=== PATIENT | female | born 1965 | race Caucasian/White ===

== ENCOUNTER 2016-11-07 23:30 | Inpatient (IN) ==
[2016-11-08] MEDS ORDERED: ZOFRAN IV ONE (00:14)
[2016-11-08] MEDS ORDERED: DILAUDID IV ONE ×3 (00:14→02:58)
[2016-11-08] MEDS ORDERED: NS 1,000 ML IV ONE (00:14)
[2016-11-08 00:33] LABS: MANUAL DIFF NEEDED? NO
[2016-11-08 00:33] LABS: URINE CULTURE NEEDED? NO; URINE SOURCE CLEAN CATCH
[2016-11-08 00:39] LABS: BILIRUBIN URINE NEGATIVE (NEGATIVE); BLOOD URINE NEGATIVE (NEGATIVE); COLOR YELLOW; GLUCOSE URINE NEGATIVE (NEGATIVE); LEUKOCYTES URINE NEGATIVE (NEGATIVE); NITRITE URINE NEGATIVE (NEGATIVE); PROTEIN URINE NEGATIVE (NEGATIVE); SP GRAVITY URINE 1.016; TURBIDITY URINE CLEAR (CLEAR); UROBILINOGEN URINE NORMAL (NORMAL)
[2016-11-08 00:39] LABS: BASO% 0.3 % (0.0-0.8); EOS# 0.14 X1000 (0.0-0.7); HEMATOCRIT 38.9 % (37.0-47.0); HEMOGLOBIN 13.1 g/dL (12.0-16.0); LYMPH# 0.89 X1000 (1.2-3.4); LYMPH% 12.8 % (20.5-51.1); MCH 31.6 PG (27-31); MCHC 33.7 g/dL (33-37); MCV 93.7 FL (81-99); MONO# 0.55 X1000 (0.11-0.59); MONO% 7.9 % (1.7-9.3); MPV 10.6 FL (7.4-10.4); PLT 260 X1000 (130-400); RBC 4.15 XMIL (4.2-5.4)
[2016-11-08 00:40] LABS: URINE MICRO REVIEW NEEDED? YES
[2016-11-08 00:44] LABS: UR EPITHELIAL CELLS <10 /HPF (<10); URINE BACTERIA NEGATIVE /HPF; URINE RBC <10 /HPF (<10); URINE WBC <10 /HPF (<10)
[2016-11-08 00:53] LABS: URINE CASTS NONE SEEN; URINE CRYSTALS CA OXALATE PRESENT
[2016-11-08 01:07] LABS: AGAP 15; ALBUMIN 4.2 g/dL (3.5-5.0); ALKALINE PHOSPHATASE 106 U/L (32-104); AMYLASE 63 U/L (20-200); BUN 14 mg/dL (8-22); CALCIUM 9.3 mg/dL (8.8-10.2); CHLORIDE 109 mmol/L (98-107); COSMO 289; GOT 19 U/L (10-30); GPT 14 U/L (10-36); LIPASE 17 U/L (13-60); POTASSIUM 4.5 mmol/L (3.5-5.1); SODIUM 145 mmol/L (136-145); TCO2 21 mmol/L (25-35); TOTAL BILIRUBIN 0.24 mg/dL (0.20-1.00); TOTAL PROTEIN 6.5 g/dL (6.3-8.3)
--- NOTE | 2016-11-08 02:51 | PROVIDER DOCUMENTATION ---
This chart was entered by Jose Quiroga Scribe, acting as scribe for Jhoan Vargas MD. HPI-Abdominal Pain/GI Problem - General Chief Complaint: Abdominal Pain Stated Complaint: abdominal pain Time Seen by Provider: 11/07/16 23:58 Source: patient Allergies/Adverse Reactions: Patient Allergies Allergy/AdvReac Type Severity Reaction Status Date / Time metaxalone [From Skelaxin] Allergy Unknown Verified 11/07/16 23:45 Home Medications: Home Medication List Medication Instructions Recorded Confirmed Last Taken Type Topiramate [Topamax] 100 mg PO BID 10/18/12 11/07/16 11/07/16 History [id number] 1,000 mcg IM Q14D 10/10/13 11/07/16 08/29/13 History Fluoxetine [Prozac] 30 mg PO DAILY 10/10/13 11/07/16 11/07/16 History Gabapentin [Neurontin] 300 mg PO 4XDAY 07/20/14 11/07/16 11/07/16 History Tramadol HCl [Tramadol HCl] 50 mg PO DAILY 11/07/16 11/07/16 11/07/16 History - History of Present Illness-ABD Nature of Presenting Problems: Pt is a 50 yowf who presents to ER with CC of sharp/cramping LLQ pain that has become gradually worse since onset of 1899 yesterday, just before pt started work. Pt complains of nausea without vomiting and states that her pain feels similar to when she had a sbo (pt reports that she never had corrective surgery , but was instead admitted for observation until sbo resolved itself). No further complaints. Abdominal Pain Onset Location: reports: LLQ Pain Radiation: reports: no radiation Quality of Pain: reports: cramping, sharp Severity in ED: reports: moderate, severe Onset/Duration: reports: 4-6 hours ago Timing: reports: still present, getting worse Associated Symptoms: reports: loss of appetite, nausea. denies: back/neck pain , chest pain, cough, diarrhea, fatigue, fever/chills, heartburn, joint pain, shortness of breath, syncope, vomiting, weakness, trouble walking Last BM: this evening Dark Stools Present?: reports: none noticed Rectal Bleeding: reports: none Rectal Pain: reports: none Emesis Description: reports: none Review of Systems - Adult - REVIEW OF SYSTEMS - ADULT Constitutional: denies: chills, fever, fatique, night sweats, weight gain, weight loss Eyes: reports: no symptoms reported Ears, Nose, Mouth & Throat: reports: no symptoms reported Cardiovascular: denies: chest pain, irregular heart rate, palpitations, poor circulation, syncope Respiratory: denies: cough, dyspnea on exertion, excessive sputum production, shortness of breath, wheezing Gastrointestinal: reports: abdominal pain, nausea. denies: hematemesis, constipation, diarrhea, difficulty swallowing, frequent heartburn, poor appetite , rectal bleeding, vomiting Genitourinary: reports: no symptoms reported Musculoskeletal: reports: no symptoms reported Integumentary: reports: no symptoms reported Neurological: reports: no symptoms reported Psychiatric: reports: no symptoms reported Endocrine: reports: no symptoms reported Hematologic/Lymphatic: reports: no symptoms reported Allergic/Immunologic: reports: no symptoms reported All Other Systems: Reviewed and Negative Past History - Adult - PAST MEDICAL HISTORY-ADULT Review of Records: reports: Nursing Assessment Review, Medications Reviewed Gastrointestinal: reports: other (gastric bypass) - PRIOR SURGERIES/PROCEDURES Surgical/Procedure History: reports: gastric bypass - IMMUNIZATION STATUS Childhood Immunizations: See Nurse Assessment Flu Vaccine: See Nurse Assessment - FAMILY HISTORY Family History: reviewed, not pertinent - SOCIAL HISTORY Smoking: cigarettes, less than 1 pack/day Provider spent 3-5 mins advising pt. on dangers of tobacco.: Discussed manners to quit use, and f/u contacts for add'l counseling. Physical Exam-General - PHYSICAL EXAM-ADULT Initial Vital Signs Reviewed: Yes - CONSTITUTIONAL General Appearance: appears well, alert, moderate distress, obtunded - EYES Eyes: PERRL/EOMI, pink conjunctivae - HEAD, EARS, NOSE, MOUTH & THROAT HENMT: normocephalic/atraumatic, moist mucous membranes, pharynx normal - NECK Neck: non-tender, full range of motion, supple, normal inspection. negative: limited range of motion - RESPIRATORY Respiratory: chest non-tender, lungs clear, normal breath sounds, no pleuratic chest pain, no respiratory distress, no accessory muscle use. negative: respiratory distress, decreased breath sounds, accessory muscle use, wheezing - CARDIOVASCULAR Cardiovascular: normal peripheral pulses, regular rate, rhythm. negative: bradycardia, tachycardia, irregularly irregular - GASTROINTESTINAL (ABDOMEN) Abdominal Exam: normal bowel sounds, soft, no organomegaly, no pulsatile mass, tenderness (epigastric/LLQ superior to left umbilicus). negative: non tender - MUSCULOSKELETAL Extremity: normal range of motion, non-tender, normal gait, normal inspection, no pedal edema, no calf tenderness, normal capillary refill, pelvis stable. negative: deformity, erythema, inflammation, swelling, tenderness - PSYCHIATRIC Psych/Mental Status: normal thought content, normal thought process, oriented x 3, disheveled, tearful. negative: normal mood/affect Progress - PLAN OF CARE/RESULTS Progress/Plan/Lab Results: Vital Signs - 8 hr 11/07/16 23:38 Temperature 97.9 F Pulse Rate 86 Respiratory Rate 17 Blood Pressure 128/79 O2 Sat by Pulse Oximetry 100 Orders Category Date Time Status CT ABD/PELVIS W/ IV CONT ONLY [CT] Stat Exams 11/08/16 00:14 Ordered AMYLASE [CHEM] Stat Lab 11/07/16 23:57 Ordered CBC WITH ELECTRONIC DIFF [HEME] Stat Lab 11/07/16 23:57 Ordered COMPREHENSIVE METABOLIC PANEL [CHEM] Stat Lab 11/07/16 23:57 Ordered LIPASE [CHEM] Stat Lab 11/07/16 23:57 Ordered URINALYSIS W/POSS RFLX CULT-1 [URINALYSIS] Stat Lab 11/07/16 23:40 Ordered 0.9% Sodium Chloride Inj [Ns] 1,000 ml Med 11/08/16 00:14 Active IV 200 mls/hr Hydromorphone [Dilaudid] Med 11/08/16 00:14 Discontinued 1 mg IV NOW ONE Ondansetron [Zofran] Med 11/08/16 00:14 Discontinued 8 mg IV NOW ONE 0221: Yuliet from [facility] called and reported that pt has sbo. Result Diagrams: 11/07/16 23:51 11/07/16 23:51 - CT/MRI 1 CT Study: Abdomen, Pelvis Impression: See EMR Report (Small bowel obstruction. Other findings in report. - Dr. Vick (Radiologist)) CT Results: See report - CONSULTS/PCP/HOSPITALIST Notification #1 *Consult/PCP/Hospitalist*: Dr. Latif (Surgeon) Time Discussed: 02:45 Reason/Comments: Place NG and admit #2 Consult: Dr. Olivares (Hospitalist) Time Discussed: 02:48 Consult Disposition: Admit Departure - Departure Date of Disposition Decision: 11/08/16 Time of Disposition Decision: 02:49 DIAGNOSIS: Small bowel obstruction Disposition: ADMITTED INPATIENT 09 Certified Medical Emergency: Emergent Condition: Good Referrals and Follow-Ups: Silvia Pugh MD [Primary Care Provider] - - Critical Care Note This patient required my direct & personal management of CC.: No This chart was documented by the indicated scribe, (Jose Quiroga Scribe) and accurately reflects the services I performed and decisions made by me, Jhoan Vargas MD, as attested by the provider's signature.
--- NOTE | 2016-11-08 03:33 | HISTORY AND PHYSICAL ---
PRIMARY CARE PHYSICIAN: Dr. Pugh. CHIEF COMPLAINT: Abdominal pain. HISTORY OF PRESENTING ILLNESS: A 50-year-old female with a history of gastric bypass, depression, and chronic low back pain. Had apparently been working earlier today when she developed moderate amount of abdominal pain. 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 She was evaluated by ER physician. She had a CAT scan done which did show a small bowel obstruction. Due to these presenting symptoms, it was thought that she would need hospitalization for further management. At the time of my examination, she denied any headache, fever, chills, chest pain, shortness of breath, hemoptysis, or weight changes but complained of abdominal pain. PAST MEDICAL HISTORY: Includes dysautonomia, depression, chronic low back pain, peripheral neuropathy. PAST SURGICAL HISTORY: Gastric bypass, cholecystectomy, hysterectomy, appendectomy, breast lift, and apparently body lift. ALLERGIES: Skelaxin. CURRENT MEDICATIONS: As listed on the MAR. SOCIAL HISTORY: Patient states that she has been smoking for the past 3 years. Denies any history of alcohol or illicit drug use. FAMILY HISTORY: Positive for coronary disease in father. REVIEW OF SYSTEMS: Twelve point review of systems as listed as in the HPI. Other systems negative. PHYSICAL EXAMINATION: GENERAL: Cooperative, friendly female. She is resting comfortably now. VITAL SIGNS: Temperature 97.9 degrees, pulse 86, respirations 17, blood pressure 128/79. HEENT: Atraumatic, normocephalic. Extraocular movements intact. PERRLA. NECK: Supple. CHEST: Clear to auscultation. CARDIOVASCULAR: Regular rhythm. ABDOMEN: Soft. Diffuse tenderness. EXTREMITIES: No edema. NEUROLOGIC: She is awake, alert, oriented x3. : No bladder distention. SKIN: Warm. LABORATORIES AND STUDIES: WBCs 6.95, hemoglobin 13.1, hematocrit 38.9, platelets 260,000. Sodium 145, potassium 4.5, chloride 109, CO2 is 21, BUN is 14, creatinine 0.6, glucose is 92. ASSESSMENT: A 50-year-old female with a history of a dysautonomia, gastric bypass, depression, and chronic low back pain. 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 She was evaluated in the emergency room. She had a CAT scan done which was consistent with a small bowel obstruction. Subsequently, she will need hospitalization for further management. 1. Small bowel obstruction. 2. Chronic low back pain. 3. Depression. 4. Dysautonomia. PLAN: 1. We will admit patient to medical floor with telemetry. 2. We will keep patient NPO. 3. We will continue with supportive treatment, IV fluids, antiemetics, and pain control. 4. We will consult general surgery. 5. We will restart patient's home medications. 6. We will put patient on DVT prophylaxis with SCDs. 7. Continue to follow and reassess. cc: Néstor Olivares MD
[2016-11-08] MEDS: NS 1,000 ML IV SCH ×3 (04:34→21:05)
[2016-11-08] MEDS: ZOFRAN IV PRN ×3 (04:44→21:04)
[2016-11-08] MEDS: DILAUDID IV PRN ×5 (04:45→22:36)
--- NOTE | 2016-11-08 06:43 | Diag Imaging Result Doc PS360 ---
EXAM: CHEST/ABD TUBE PLACEMENT HISTORY: ng tube placement TECHNIQUE: Portable upright AP chest abdomen COMPARISON: 10/21/2016 FINDINGS: There is a nasogastric tube overlying the esophagus and stomach. The lung bases are clear. No free air beneath the diaphragm. IMPRESSION: Nasogastric tube enters the stomach Electronically signed by Chu Dickerson 11/08/2016 6:41 AM
--- NOTE | 2016-11-08 07:09 | CONSULTATION ---
DATE OF CONSULTATION: 11/08/2016 REQUESTING PHYSICIAN: Hospitalist service. REASON FOR CONSULTATION: Consult is concerning bowel obstruction. HISTORY OF PRESENT ILLNESS: A 50-year-old, female with a history of gastric bypass, presenting now with moderate amount of abdominal pain. She had a CT scan that did show a bowel obstruction and to my read, it looks like it is potentially related to her gastric bypass. She had an NG tube placed but has not to placed to suction and was admitted to the floor by the hospitalist. She denies any kind of headache, fever, chills, chest pain or shortness of breath but does complain of abdominal pain. Reports it is more in the epigastric and right upper quadrant. She said she has had bowel obstructions before but this is more intense. I was asked to weigh an opinion. PAST MEDICAL HISTORY: 1. Dysautonomia. 2. Depression. 3. Chronic back pain. 4. Peripheral neuropathy. PAST SURGICAL HISTORY: 1. Previous gastric bypass (Donavan-en-Y gastric bypass). 2. Cholecystectomy. 3. Hysterectomy. 4. Appendectomy. 5. Breast lift. 6. Abdominoplasty. ALLERGIES: Skelaxin. CURRENT MEDICATIONS: Reviewed from the MAR. SOCIAL HISTORY: Smoker. Denies alcohol or illicit drugs. FAMILY HISTORY: Positive for coronary artery disease. REVIEW OF SYSTEMS: A full 10 point review of systems was obtained and negative except as specified in the HPI. PHYSICAL EXAMINATION: Vital Signs: The patient is currently afebrile. Her vital signs have been stable. General Examination: No acute distress but appears uncomfortable. female, looks stated age. HEENT: Normocephalic, atraumatic. Pupils equal, round, react to light. Mucous membranes moist. Oropharynx benign. Neck: Supple. Trachea midline. Cardiovascular: Regular rate and rhythm. Lungs: Grossly clear. Abdomen: Soft. Some tenderness to palpation in the right upper quadrant and epigastric. No peritoneal signs at this time. Extremities: Moves all extremities. Neurologic: Grossly intact. Skin: No signs of jaundice. Vascular: All extremities perfused. LABORATORY: White blood cell count 6, hematocrit is 38.9, platelet count is 260,000. CT scan independently reviewed. Radiology, preliminary report reviewed. Consistent with a bowel obstruction, although to my read, it looks like potentially it is related to the Donavan limb. ASSESSMENT AND PLAN: A 50-year-old, female with a small bowel obstruction and a history of gastric bypass. Small bowel obstruction with a history of gastric bypass. At this time, I am concerned about the patient's overall physical exam. She had an NG tube that has been placed but we will now place the NG to low wall intermittent suction. We will give some time to allow this to work. We will reassess later today. The patient may need exploratory laparotomy. Discussed with her this extensively discussed. Discussed that she might need her gastric bypass revised. All questions were answered. We will again follow up with the patient later today to see how she is doing. cc: MD Gabriel Ge MD
--- NOTE | 2016-11-08 07:20 | Diag Imaging Result Doc PS360 ---
EXAM: CT ABD/PELVIS W/ IV CONT ONLY HISTORY: epigast pain, hx of SBO TECHNIQUE: Dose reduction protocol COMPARISON: 10/10/2013 FINDINGS: The gallbladder has been removed and there has been a gastric bypass procedure. Normal spleen, pancreas, adrenal glands, liver, and kidneys. No hydronephrosis. Normal aorta. There are several small para-aortic and paracaval lymph nodes measuring up to 1.0 cm. There are overly distended small bowel loops filled with debris in the left abdomen. The distal small bowel loops are not dilated. There is stool throughout the colon. The uterus is been removed. Small amount of free fluid is found in the pelvis. No pelvic mass. The urinary bladder is moderately distended and appears normal. IMPRESSION: 1.Small bowel obstruction 2.Constipation 3.Cholecystectomy, gastric bypass, and hysterectomy 4.A preliminary report was given at 2:21 AM Electronically signed by Chu Dickerson 11/08/2016 7:17 AM
[2016-11-08] MEDS ORDERED: MEFOXIN 2 GM/NS 2 GM/50 ML IVPB IV ONE (13:05)
[2016-11-08] MEDS ORDERED: EXPAREL 1.3% ONE (13:43)
[2016-11-08] MEDS ORDERED: MARCAINE 0.25% PF ONE (13:43)
[2016-11-08] MEDS ORDERED: SODIUM CHLORIDE 0.9% 20 ML ONE (13:43)
--- NOTE | 2016-11-08 14:01 | Diag Imaging Result Doc PS360 ---
EXAM: SMALL BOWEL SERIES ONLY HISTORY: Bowel Obstruction TECHNIQUE: COMPARISON: None. FINDINGS: Oral contrast was placed into the stomach from the patient's nasogastric tube. Films for two hours obtained. Contrast empties from the small stomach pouch into the small bowel bowel. The proximal loops are not overly distended. There is a single loop of bowel in the lateral left abdomen which appears to contain a small amount of contrast about fecalith material. The majority of the small bowel still does not contain contrast on the two-hour film. IMPRESSION: Findings suspicious for an obstruction. Recent CT seems to indicate a twisted segment in the lower left abdomen which may be a closed loop obstruction. Films discussed with Dr. Latif Electronically signed by Chu Dickerson 11/08/2016 1:59 PM
[2016-11-08 14:48] LABS: URINE MICRO REVIEW NEEDED? NO; URINE SOURCE CATH
[2016-11-08 14:51] LABS: BILIRUBIN URINE NEGATIVE (NEGATIVE); BLOOD URINE NEGATIVE (NEGATIVE); COLOR YELLOW; GLUCOSE URINE NEGATIVE (NEGATIVE); LEUKOCYTES URINE NEGATIVE (NEGATIVE); NITRITE URINE NEGATIVE (NEGATIVE); PROTEIN URINE NEGATIVE (NEGATIVE); SP GRAVITY URINE 1.022; TURBIDITY URINE CLEAR (CLEAR); UROBILINOGEN URINE NORMAL (NORMAL)
[2016-11-08 14:52] LABS: UR EPITHELIAL CELLS <10 /HPF (<10); URINE BACTERIA NEGATIVE /HPF; URINE RBC <10 /HPF (<10); URINE WBC <10 /HPF (<10)
--- NOTE | 2016-11-08 15:12 | PROGRESS NOTE ---
DATE: 11/08/2016 SUBJECTIVE: Ms. Fang is a 50-year-old white female who was admitted last night with abdominal pain. She has small bowel obstruction. She has also a dysautonomia and has severe depression and back pain. Her CBC is normal. Electrolytes are normal. Urinalysis was negative. Abdominal CT done today revealed a small bowel obstruction. Constipation. She had a history of cholecystectomy. She had gastric bypass and hysterectomy in the past. She was seen by Dr. Latif today. -1 cc: MD Gabriel Solitario MD
--- NOTE | 2016-11-08 15:35 | PROGRESS NOTE ---
DATE: 11/08/2016 TIME OF DICTATION: 13:05. SUBJECTIVE: Reviewed images with Dr. Dickerson. I did order a small bowel series. Reviewed both small-bowel series and the CT scan. I am concerned there might be a potential volvulus versus internal hernia. Contrast does not seem to make much progress at 2 hours. Therefore, I think the patient will be taken to the operating room for exploratory laparotomy. I did discuss this with the patient. She voiced understanding. I will get her scheduled for today. cc: MD Gabriel Ge MD [facility]Jack
[2016-11-08] MEDS: PHENERGAN ONE ×2 (15:42→16:00)
[2016-11-08] MEDS ORDERED: DIPRIVAN 1% ONE (15:52)
--- NOTE | 2016-11-08 17:48 | OPERATIVE NOTE ---
PROCEDURE DATE: 11/08/2016 PREOPERATIVE DIAGNOSES: 1. Small bowel obstruction. 2. History of Donavan-en-Y gastric bypass. POSTOPERATIVE DIAGNOSIS: Small bowel obstruction secondary to internal hernia from the Donavan-en-Y gastric bypass. PROCEDURE PERFORMED: Exploratory laparotomy with reduction and repair of internal hernia. SURGEON: Emil Latif MD PLASTIC JOINT MAKER: None. ANESTHESIA: General endotracheal. INTRAOPERATIVE FINDINGS: On the Donavan-en-Y gastric bypass, the gastric pouch appeared to be antecolic. There was a defect there that contained what appeared to be the duodenal end of the bypass causing obstruction. Her anastomosis of the Donavan-en-Y bypass appeared to be slightly stenotic, but we were able to pass fluid and liquid through it. HISTORY: The patient is a 50-year-old female who presented with a bowel obstruction. She had a history Donavan-en-Y gastric bypass. We did a CT scan that was concerning for closed loop obstruction. She also had a small bowel series and did not pass beyond a certain point. We felt that potentially she had a closed loop obstruction. The risks, benefits, and alternatives for exploratory laparotomy were discussed. All questions were answered. DESCRIPTION OF PROCEDURE: After informed consent was obtained, the patient was brought to the operating theatre, transferred to the operating table, and placed in supine position. General endotracheal anesthesia was then performed without complication. A formal time-out was then performed, confirming patient, date, and procedure and all were in agreement. At that time, attention was turned to the abdomen. A standard midline incision was made, through which we went into the abdomen. We eviscerated essentially all the small bowel. We ran it multiple times. We 1st identified the right colon and ileocecal valve. We ran this bowel to the anastomosis. It was mostly decompressed. We then identified the Donavan limb to the gastric bypass. We followed it all the way up. It went antecolic. It was mildly distended and there was some thicker material noted in the small bowel. The anastomosis itself appeared to be slightly stenotic. We were able to pass this hardened liquid through it without difficulty. We did find a defect noted from the window made from the antecolic at the Donavan limb, which contained bowel from the duodenal aspect that was obstructing. We reduced it back into its normal position. This defect measured approximately 5 cm. We closed it with interrupted silk stitches with good results. We ran the small bowel multiple times and found no other pathology. There were no other points of obstruction. We irrigated the abdomen and then closed it with running looped PDS. We started at either side for the fascia and shelton for the skin. The patient tolerated the procedure well. We did confirm that the NG tube was in the correct position. We will keep the NG tube in the postoperative period and allow continued decompression and likely potentially remove it and later start on clear liquids in the morning. cc: MD Gabriel Ge MD
[2016-11-08] MEDS: CHLORASEPTIC SPRAY MT PRN (19:22)
[2016-11-09] MEDS: DILAUDID IV PRN ×7 (01:33→23:30)
[2016-11-09] MEDS: ZOFRAN IV PRN ×3 (05:04→20:02)
[2016-11-09] MEDS: NS 1,000 ML IV SCH ×4 (05:09→23:29)
[2016-11-09 06:04] LABS: BASO% 0.2 % (0.0-0.8); HEMATOCRIT 33.6 % (37.0-47.0); HEMOGLOBIN 11.1 g/dL (12.0-16.0); LYMPH# 0.66 X1000 (1.2-3.4); LYMPH% 11.5 % (20.5-51.1); MANUAL DIFF NEEDED? NO; MCV 93.9 FL (81-99); MONO# 0.68 X1000 (0.11-0.59); MONO% 11.9 % (1.7-9.3); MPV 10.4 FL (7.4-10.4); NEUT% 76.4 % (42.2-75.2); PLT 209 X1000 (130-400); RBC 3.58 XMIL (4.2-5.4)
--- NOTE | 2016-11-09 06:34 | PROGRESS NOTE ---
DATE: 11/09/2016 SUBJECTIVE: Patient doing okay after exploratory laparotomy. She is passing gas now. She is only minimally nauseated. She wants her NG tube out. OBJECTIVE: Vital Signs: Patient is currently afebrile. Her heart rates in the low 100s to high 90s. The remainder of her vital signs are stable. General: No acute distress. Resting comfortably. Cardiovascular: Mildly tachycardic. Lungs: Grossly clear. Abdomen: Soft, appropriately tender. Dressing in place. ASSESSMENT AND PLAN: A 50-year-old female, status post exploratory laparotomy with reduction and repair of internal hernia. Postoperative state at this time, I will clamp the NG tube and start her on clear liquids and she is passing gas. We will monitor her closely. I suspect that the patient has a chronic stenotic area at her Donavan-en-Y gastric bypass and she is likely going to need to increase her intake of water in this area and do post gastrectomy diet. We will follow with her while she is in the hospital. cc: MD Gabriel Ge MD
[2016-11-09 06:58] LABS: AGAP 10; BUN 8 mg/dL (8-22); CALCIUM 8.1 mg/dL (8.8-10.2); CHLORIDE 108 mmol/L (98-107); COSMO 277; POTASSIUM 3.7 mmol/L (3.5-5.1); SODIUM 139 mmol/L (136-145); TCO2 21 mmol/L (25-35)
[2016-11-09] MEDS: PROTONIX IV SCH (09:44)
--- NOTE | 2016-11-09 09:51 | PROGRESS NOTE ---
DATE: 11/09/2016 SUBJECTIVE: This is a level 3 documentation. Interval history was reviewed. The patient is a 50- year-old, white female. While working in the yard, developed nausea, vomiting, and abdominal pain. Further workup revealed a small bowel obstruction. It included a CT of the abdomen and pelvis, small bowel follow-through. Patient was treated symptomatically with NG tube and decompression. Patient was seen by Dr. Emil Latif. He did an exploratory laparotomy on the operative findings were reviewed. Currently, she is passing flatulence. NG tube was placed. Batres catheter was seen. REVIEW OF SYSTEMS: HEENT: Within normal limits. Neck: No neck pain. Cardiopulmonary: No chest pain, shortness of breath, PND, orthopnea. GI: Abdominal pain improving. History of flatus. No swelling of feet. No back pain. Neurologic: No focal symptoms. Past medical history, past surgical history, medicines were reviewed. PHYSICAL EXAMINATION: Vital Signs: She is afebrile. Vitals are stable. HEENT: Examination within normal limits. Neck: Supple. No lymphadenopathy. No goiter. Chest: Bilateral air entry. Heart: Heart sounds are regular. Abdomen: Belly is soft. Midline abdominal scar present. Bowel sounds 1+. Extremities: No peripheral edema. Neurologic Examination: No obvious focal deficits. INVESTIGATIONS: CBC: White cell count 5.7, hematocrit 33, platelets 209,000. SMA 7: Sodium 139, potassium 3.7, chloride 108, BUN 8, creatinine 0.5, glucose 110. Liver function was normal. Urinalysis is clear. ASSESSMENT AND PLAN: 1. Small-bowel obstruction due to internal hernia from gastric bypass surgery, decompressed and improving. Clamp the nasogastric tube. Clear liquid diet. 2. Decrease the intravenous fluids. 3. Out of the bed. 4. Recheck the labs in the morning. 5. Deep venous thrombosis prophylaxis with antithrombotic stockings. 6. Gastrointestinal prophylaxis with intravenous Protonix. 7. Discussed with the family and the patient the plan of care. LEVEL OF DOCUMENTATION: 35 minutes. cc: Gabriel Pugh MD
[2016-11-09] MEDS ORDERED: ZOFRAN ONE (10:15)
[2016-11-09] MEDS ORDERED: NORCURON ONE (10:15)
[2016-11-09] MEDS ORDERED: NEOSTIGMINE ONE (10:15)
[2016-11-09] MEDS ORDERED: XYLOCAINE-MPF 2% ONE (10:15)
[2016-11-09] MEDS ORDERED: QUELICIN (DOSE) ONE (10:15)
[2016-11-09] MEDS ORDERED: LR 2,000 ML ONE (10:15)
[2016-11-09] MEDS ORDERED: DECADRON ONE (10:15)
[2016-11-09] MEDS ORDERED: OFIRMEV 1000 MG/ISOTONIC SOLN 1,000 MG/100 ML BOTTLE ONE (10:15)
[2016-11-09] MEDS ORDERED: ROBINUL ONE (10:15)
[2016-11-10] MEDS: CHLORASEPTIC SPRAY MT PRN (03:02)
[2016-11-10] MEDS: ZOFRAN IV PRN ×3 (03:02→11:24)
[2016-11-10] MEDS: DILAUDID IV PRN ×5 (03:02→18:48)
[2016-11-10 06:28] LABS: MANUAL DIFF NEEDED? NO
[2016-11-10 06:39] LABS: BASO% 0.2 % (0.0-0.8); EOS# 0.16 X1000 (0.0-0.7); EOS% 3.9 % (0.0-10.0); HEMATOCRIT 32.1 % (37.0-47.0); HEMOGLOBIN 10.6 g/dL (12.0-16.0); LYMPH# 0.78 X1000 (1.2-3.4); MCH 31.5 PG (27-31); MCV 95.3 FL (81-99); MONO# 0.61 X1000 (0.11-0.59); MONO% 14.8 % (1.7-9.3); MPV 10.5 FL (7.4-10.4); NEUT% 62.1 % (42.2-75.2); PLT 194 X1000 (130-400); RBC 3.37 XMIL (4.2-5.4)
--- NOTE | 2016-11-10 06:42 | PROGRESS NOTE ---
DATE: 11/10/2016 SUBJECTIVE: Patient doing okay. She is still passing gas. She tolerated the liquids with only minimal nausea. The NG tube has been clamped for 24 hours. OBJECTIVE: Vital Signs: Patient is currently afebrile. Her vital signs have been stable. General Examination: No acute distress. Cardiovascular: Regular rate and rhythm. Lungs: Grossly clear. Abdomen: Soft, appropriately tender. Incision is healing well. ASSESSMENT AND PLAN: A 50-year-old, female, status post exploratory laparotomy with reduction and repair of internal hernia. Postoperative state. At this time, I will remove her nasogastric tube and keep her on clear liquids. I would like to keep her on clear liquids until she is really having return of bowel function with the passage of stool. She likely need to increase her water intake and have a postgastrectomy diet once this is all done. We will continue to follow the patient while she is here. cc: MD Gabriel Ge MD
[2016-11-10 06:58] LABS: AGAP 10; BUN 4 mg/dL (8-22); CALCIUM 8.2 mg/dL (8.8-10.2); CHLORIDE 106 mmol/L (98-107); COSMO 275; POTASSIUM 3.4 mmol/L (3.5-5.1); SODIUM 139 mmol/L (136-145); TCO2 23 mmol/L (25-35)
[2016-11-10] MEDS: PROTONIX IV SCH ×2 (07:50→09:31)
[2016-11-10] MEDS: SODIUM CHLORIDE 0.9% INJ SCH (07:50)
[2016-11-10] MEDS ORDERED: KLOR-CON PO ONE (08:38)
[2016-11-10] MEDS: PROZAC PO SCH (09:29)
[2016-11-10] MEDS: NS 1,000 ML IV SCH (13:10)
[2016-11-10] MEDS: BENADRYL IV PRN (15:33)
--- NOTE | 2016-11-10 18:14 | PROGRESS NOTE ---
DATE: 11/10/2016 SUBJECTIVE: Postop day 3 for bowel obstruction. The patient is out of bed. Complains of insomnia. Wants to restart the medicine. Patient is off on Lovenox. Passing gas. No nausea or vomiting. The rest of review of systems are normal. OBJECTIVE: Vital Signs: On examination she is afebrile. Vitals are stable. HEENT: Within normal limits. Neck: Supple. Chest: Clear. Heart: Sounds are regular. Abdomen: Belly is soft. Midline abdominal incision. No signs of active bleeding noted. Bowel sounds present. Extremities: No peripheral edema, cyanosis, clubbing. Neurologic: No obvious neurological deficits. INVESTIGATIONS: White cell count 4.1, hematocrit 32, platelets 194,000. SMA 7 is normal except potassium 3.4. Urinalysis is clear. ASSESSMENT AND PLAN: 1. Postoperative day 3 bowel obstruction due to internal hernia, and off nasogastric tube. Continue on the liquid diet. Decrease IV fluids 80 mL an hour. 2. Hypokalemia. Replace the potassium. 3. Insomnia. On Ambien. 4. Deep vein thrombosis prophylaxis with thrombotic stockings out of the bed. 5. Reconcile slowly her home medications. 6. Discontinue Batres catheter today. LEVEL OF DOCUMENTATION: 25 minutes. cc: Gabriel Pugh MD
[2016-11-10] MEDS: AMBIEN PO SCH (21:38)
[2016-11-11] MEDS: ZOFRAN IV PRN (00:13)
[2016-11-11] MEDS: DILAUDID IV PRN ×2 (00:13→04:17)
[2016-11-11] MEDS: NS 1,000 ML IV SCH ×2 (00:17→12:21)
[2016-11-11] MEDS: BENADRYL IV PRN (04:17)
--- NOTE | 2016-11-11 06:27 | PROGRESS NOTE ---
DATE: 11/11/2016 SUBJECTIVE: Patient doing well. Tolerated a clear liquid diet. She is having bowel movements. OBJECTIVE: Vital Signs: Patient is currently afebrile. Her vital signs stable. General Examination: No acute distress. Cardiovascular: Regular rate and rhythm. Lungs: Clear. Abdomen: Soft, appropriately tender. Incision is healing well. ASSESSMENT AND PLAN: A 50-year-old, female, status post exploratory laparotomy with reduction and repair of internal hernia. Postoperative state. At this time, we will start the patient on a full liquid diet. She is doing well overall. She is having bowel movements and return of bowel function. I want to take it slow with advancement of her diet. We will also transition her to oral pain medicine. The patient has continued to mobilize. I think overall she should be close to being discharged soon. cc: MD Gabriel Ge MD
[2016-11-11] MEDS: NORCO-10 PO PRN ×4 (07:30→21:13)
[2016-11-11] MEDS: PROZAC PO SCH (09:44)
[2016-11-11] MEDS: PROTONIX IV SCH (09:45)
[2016-11-11] MEDS: SODIUM CHLORIDE 0.9% INJ SCH (09:45)
--- NOTE | 2016-11-11 19:54 | PROGRESS NOTE ---
DATE: 11/11/2016 SUBJECTIVE: Over the last 4 hours, Batres was discontinued. The patient has a peripheral IV on the left neck area and the right hand out of the bed. Some cramping in the belly, passing gas. REVIEW OF SYSTEMS: None reported. PHYSICAL EXAMINATION: Vital Signs: Stable. HEENT: Within normal limits. Neck: Supple. No lymphadenopathy. Chest: Clear. Heart: Sounds are regular. Abdomen: Belly is soft. Midline shelton present. Extremities: No peripheral edema or cyanosis. Neurologic: No obvious neurological deficits. INVESTIGATIONS: CBC: White cell count 4.1, hematocrit 32, platelets 194,000. SMA7: Sodium 139, potassium 3.4. Urinalysis is clear. ASSESSMENT AND PLAN: 1. Postop day 3 for small-bowel obstruction, doing very well. Abdominal wound looks fine. 2. Advance the diet to full liquid. 3. Slowly restart her home medicines. Out of the bed with physical therapy. If she tolerates the full liquid, will discontinue IV fluids. Continue present medical treatment. LEVEL OF DOCUMENTATION: 25 minutes. cc: Gabriel Pugh MD MTDD
[2016-11-11] MEDS: AMBIEN PO SCH (21:14)
[2016-11-12] MEDS: NORCO-10 PO PRN ×4 (02:50→18:49)
[2016-11-12] MEDS: NS 1,000 ML IV SCH ×2 (02:51→17:40)
--- NOTE | 2016-11-12 06:22 | PROGRESS NOTE ---
DATE: 11/12/2016 SUBJECTIVE: Patient doing well. She tolerated full liquids. She is having bowel movements. OBJECTIVE: Vital Signs: Patient is currently afebrile. Her vital signs are stable. General Examination: No acute distress. Cardiovascular: Regular rate and rhythm. Lungs: Grossly clear. Abdomen: Soft, appropriately tender. Incision is healing well. ASSESSMENT AND PLAN: A 50-year-old, female, status post exploratory laparotomy with reduction and repair of internal hernia. Postoperative state. At this time, patient is doing well. I advanced her to a regular diet. The patient potentially could be discharged later today or in the morning. cc: MD Gabriel Ge MD
[2016-11-12] MEDS: TYLENOL PO PRN (08:36)
[2016-11-12] MEDS ORDERED: PROTONIX PO ONE (10:38)
[2016-11-12] MEDS ORDERED: ZOFRAN PO PRN (10:39)
[2016-11-12] MEDS ORDERED: ZOFRAN PO ONE (10:39)
[2016-11-12] MEDS: PROZAC PO SCH (11:52)
--- NOTE | 2016-11-12 19:45 | PROGRESS NOTE ---
DATE: 11/12/2016 SUBJECTIVE: The patient is doing very well. IV lines were out. Discontinue IV fluids and tolerating full liquid diet. Some occasional stomach cramps. No nausea, vomiting. EXAMINATION: Vital signs: Stable, afebrile. HEENT: Within normal limits. Neck: Supple. Chest: Clear. Heart: Sounds are regular. Abdomen: Abdominal incision, shelton were intact. No signs of infection noted. Extremities: No peripheral edema, cyanosis. Neurologic: No obvious neurological deficits. ASSESSMENT AND PLAN: Postop day for small bowel obstruction, improving. Advance diet. Discontinue Batres and IV fluids. Reconcile her home medicines. If stable will be discharged in the morning. cc: Gabriel Pugh MD MTDD
[2016-11-12] MEDS ORDERED: MYLICON PO PRN (20:52)
[2016-11-12] MEDS: TOPAMAX PO SCH (21:22)
[2016-11-12] MEDS: AMBIEN PO SCH (21:22)
[2016-11-12] MEDS: NEURONTIN PO SCH (21:22)
[2016-11-13] MEDS: TYLENOL PO PRN (05:46)
[2016-11-13] MEDS: PROTONIX PO SCH ×2 (05:46→06:20)
--- NOTE | 2016-11-13 06:40 | PROGRESS NOTE ---
DATE: 11/13/2016 SUBJECTIVE: Patient is doing well. Tolerating a regular diet. She is having bowel movements. OBJECTIVE: Vital Signs: Patient is currently afebrile. Her vital signs are stable. General: No acute distress. Cardiovascular: Regular rate and rhythm. Lungs: Clear. Abdomen: Soft, appropriately tender. Incision is healing well. ASSESSMENT AND PLAN: A 50-year-old female, status post exploratory laparotomy with repair and reduction of internal hernia. Postoperative state at this time, patient is doing well. I will discharge her after breakfast today. cc: MD Gabriel Ge MD
[2016-11-13 07:42] VITALS: BP 121/72
[2016-11-13] MEDS: NORCO-10 PO PRN (08:51)
[2016-11-13] MEDS: NEURONTIN PO SCH (09:44)
[2016-11-13] MEDS: PROZAC PO SCH (09:44)
[2016-11-13] MEDS: TOPAMAX PO SCH (09:45)
--- NOTE | 2016-11-13 20:42 | DISCHARGE SUMMARY ---
ADMISSION DATE: 11/08/2016 DISCHARGE DATE: 11/13/2016 DISCHARGE DIAGNOSIS: Abdominal pain due to small bowel obstruction due to internal hernia from [place]-en-Y gastric bypass. SECONDARY DIAGNOSES: 1. Metabolic syndrome. 2. Chronic anxiety/depression. 3. History of peripheral neuropathy. 4. Vitamin B12 deficiency. 5. History of chronic fatigue syndrome due to swing shift. CONSULTATION: Emil Latif MD. PROCEDURES: Exploratory laparotomy with reduction and repair of internal hernia. BRIEF HISTORY: Please see the H and P that was done by Dr. Marshall Palm. In brief, she is a 50- year-old, white female who works in the hospital as a Registered Nurse. She was admitted to the hospital with abdominal pain, nausea, vomiting. Patient was found to have a small-bowel obstruction. The patient initially started on conservative management. Subsequently seen by Dr. Emil Latif who performed exploratory laparotomy followed by reduction of internal hernia. Postoperative course was uneventful. Abdominal wound with no sign of infection. Carlos A are intact. LABORATORIES AT TIME OF DISCHARGE: CBC: White cell count 4.1, hematocrit 32, platelets 194,000, SMA 7. Sodium 139, potassium 3.7, chloride 106, BUN 4, creatinine 0.4, glucose 103. Urinalysis is clear. DISCHARGE INSTRUCTIONS: Follow up with Dr. Emil Latif next week to remove the carlos a as well as in my office. We will give her an excuse until 12/01/2016. DISCHARGE MEDICATIONS: 1. Topamax 100 p.o. b.i.d. 2. B12 injection every 14 days. 3. Prozac 30 mg daily. 4. Neurontin 300, 4 times daily. 5. Tramadol 50 daily. 6. Lunesta 2 mg at bedtime. 7. Seroquel 50 p.o. b.i.d. 8. [place] as needed for pain. cc: MD Emil Pat MD [facility]
== END 2016-11-13 10:09 | disposition home or self-care (01) ==
LOC: ED 23:30 → 4N 11-08 03:37 → SUATTDRO 11-08 03:37 → 4N 11-08 04:02
PROVIDERS: ADMIT Internal Medicine; ATTEND Internal Medicine